=== PATIENT | female | born 1950 | race Caucasian/White ===

== ENCOUNTER → 2017-09-10 | Outpatient (CLI) | payer OTHER ==
[~2017-09-10] MED LIST: BUSPAR; FIORICET; FLONASE; LIPITOR; PAXIL; TOPAMAX25 MG PO
== END | disposition home or self-care (01) ==
LOC: CDC 10:00
DX: Z01.810 Encounter for preprocedural cardiovascular examination (principal); M19.042 Primary osteoarthritis, left hand; G56.02 Carpal tunnel syndrome, left upper limb; M79.642 Pain in left hand; R94.31 Abnormal electrocardiogram [ECG] [EKG]
CPT/HCPCS: 93000

== ENCOUNTER 2017-09-26 11:02 | Day surgery (SDC) | payer OTHER ==
[~2017-09-26] VITALS: Ht 157.5 cm; Wt 86.6 kg
[~2017-09-26 11:02] MED LIST changes: +BUSPAR15 MG PO; +CENTRUM SILVER1 EAC3 PO; +CINNAMON500 MG PO; +EXCEDRIN MIGRA1 EAC3 PO; +FISH OIL 1,2001 EAC6 PO; +FLONASE ALLERG9.9 ML BOTH NARES; +METAMUCIL0.4 GM PO; +METAMUCIL0.52 GM PO; +METFORMIN HCL1000 M3 PO; +MOTRIN IB200 MG PO; +PAXIL20 MG PO; +PROTONIX40 MG PO; +TOPAMAX50 MG PO; +VITAMIN B-6100 MG PO; +ZANTAC150 MG PO; +ZOCOR40 MG PO
[2017-09-26 11:31] VITALS: BP 144/67
[2017-09-26 16:05] VITALS: BP 129/59
[2017-09-26 17:00] VITALS: BP 111/56
== END 2017-09-26 17:20 | disposition home or self-care (01) ==
LOC: SDC 11:02
PROVIDERS: Orthopaedic Surgery Hand Surgery
DX: G56.02 Carpal tunnel syndrome, left upper limb (principal); M18.12 Unilateral primary osteoarthritis of first carpometacarpal joint, left hand; Z88.5 Allergy status to narcotic agent; E11.9 Type 2 diabetes mellitus without complications; K21.9 Gastro-esophageal reflux disease without esophagitis; Z79.84 Long term (current) use of oral hypoglycemic drugs
CPT/HCPCS: 82948; C1769; J0131; J0690; J1100; J1170; J2405; J3010; S0020

== ENCOUNTER 2017-09-28 13:34 | Emergency (ER) | payer OTHER ==
[~2017-09-28] VITALS: Ht 157.5 cm; Wt 85.6 kg
[2017-09-28 14:12] LABS: HEMATOCRIT 38.7 % (36.0-46.0); HEMOGLOBIN 12.5 G/DL (11.9-15.5); MCH 28.6 PG (29.0-34.0); MCHC 32.3 G/DL (30.0-36.0); MCV 88.6 FL (83-99); PLATELET COUNT 250 K/uL (156-360); RBC DIS.WIDTH-CV 14.5 % (11.8-14.6); RBC DIS.WIDTH-SD 46.8 % (39-53); RED BLOOD COUNT 4.37 M/uL (3.80-5.20); WHITE BLOOD COUNT 11.2 K/uL (4.1-10.2)
[2017-09-28 14:23] LABS: CHLORIDE 105 mEq/L (99-109); POTASSIUM 3.6 mEq/L (3.7-5.4); SODIUM 141 mEq/L (136-147)
[2017-09-28 14:25] LABS: GLUCOSE 116 mg/dL (70-99)
[2017-09-28 14:29] LABS: CREATININE 0.8 mg/dL (0.6-1.3); GFR ESTIMATE (CALCULATED) > 59 mL/min/
[2017-09-28 14:30] LABS: UREA NITROGEN (BUN) 8 mg/dL (9-23)
[2017-09-28 14:33] LABS: TROP-I INTERPRETATION NEGATIVE; TROPONIN-I < 0.01 ng/mL (0.0-0.30)
[2017-09-28] MEDS ORDERED: NAPROSYN500 MG PO (18:26)
[2017-09-28 18:55] VITALS: BP 133/75
== END 2017-09-28 19:11 | disposition home or self-care (01) ==
LOC: EME 13:34
PROVIDERS: Physician Assistant
DX: R09.1 Pleurisy (principal); R07.9 Chest pain, unspecified; M54.9 Dorsalgia, unspecified; Z98.890 Other specified postprocedural states; E78.5 Hyperlipidemia, unspecified; E11.9 Type 2 diabetes mellitus without complications; Z79.84 Long term (current) use of oral hypoglycemic drugs; Z90.49 Acquired absence of other specified parts of digestive tract
CPT/HCPCS: 71046; 71275; 80048; 84484; 85027; 93005; 99281; 99284; J7030